=== PATIENT | male | born 1975 | race Two or more races ===

== ENCOUNTER 2018-03-02 15:56 | Outpatient (CLI) | payer OTHER | END 2018-03-02 16:37 | disposition home or self-care (01) | LOC: RAD 501 15:56 | DX: M79.651 Pain in right thigh (principal) ==

== ENCOUNTER 2018-03-16 08:50 | Day surgery (SDC) | payer OTHER | END 2018-03-16 16:15 | disposition home or self-care (01) | LOC: CIR.AMB 08:50 | DX: S76.311D Strain of muscle, fascia and tendon of the posterior muscle group at thigh level, right thigh, subsequent encounter (principal) ==

== ENCOUNTER 2018-10-13 04:21 | Emergency (ER) | payer OTHER ==
[~2018-10-13] VITALS: Ht 172.7 cm; Wt 72.6 kg
[2018-10-13] MEDS ORDERED: MUCINEX DM ER1 EAC1 PO (07:24)
[2018-10-13] MEDS ORDERED: TESSALON PERLE100 M1 PO (07:24)
[2018-10-13] MEDS ORDERED: FLONASE ALLERG9.9 ML NASAL (07:24)
[2018-10-13] MEDS ORDERED: KETO10TA2 PO (07:24)
== END 2018-10-13 08:16 | disposition home or self-care (01) ==
LOC: ER 04:21
DX: J06.9 Acute upper respiratory infection, unspecified (principal)

== ENCOUNTER 2020-05-18 16:26 | Outpatient (CLI) | payer OTHER ==
[~2020-05-18 16:26] MED LIST: FLONASE ALLERG9.9 ML NASAL; KETO10TA2 PO; MUCINEX DM ER1 EAC1 PO; TESSALON PERLE100 M1 PO
== END 2020-05-18 16:35 | disposition home or self-care (01) ==
LOC: RAD 16:26
PROVIDERS: ATTEND Orthopaedic Surgery
DX: M25.521 Pain in right elbow (principal)

== ENCOUNTER → 2021-04-25 08:04 | Outpatient (CLI) | payer OTHER | END | disposition home or self-care (01) | LOC: LAB 08:04 | PROVIDERS: ATTEND Orthopaedic Surgery | DX: D64.9 Anemia, unspecified (principal); E88.9 Metabolic disorder, unspecified; D68.8 Other specified coagulation defects; N39.0 Urinary tract infection, site not specified; A49.02 Methicillin resistant Staphylococcus aureus infection, unspecified site ==

== ENCOUNTER 2021-05-04 06:13 | Day surgery (SDC) | payer OTHER | END 2021-05-04 11:30 | disposition home or self-care (01) | LOC: CIR.AMB 06:13 | PROVIDERS: ATTEND Orthopaedic Surgery | DX: M77.11 Lateral epicondylitis, right elbow (principal); M65.821 Other synovitis and tenosynovitis, right upper arm ==

== ENCOUNTER 2023-02-10 03:38 | Emergency (ER) | payer OTHER ==
[~2023-02-10] VITALS: Ht 167.6 cm; Wt 68.0 kg
[2023-02-10] MEDS ORDERED: KETO10TA2 PO (05:52)
[2023-02-10] MEDS ORDERED: NORFLEX100MG PO (05:52)
== END 2023-02-10 05:57 ==
LOC: ER 03:38
DX: M54.59 Other low back pain (principal)

== ENCOUNTER 2023-02-14 10:29 | Outpatient (CLI) | payer OTHER ==
[~2023-02-14 10:29] MED LIST changes: +NORFLEX100MG PO
== END 2023-02-14 14:26 | disposition home or self-care (01) ==
LOC: MRI 10:29
PROVIDERS: ATTEND Physical Medicine & Rehabilitation
DX: M54.50 Low back pain, unspecified (principal)
CPT/HCPCS: 72148

== ENCOUNTER 2023-12-25 08:29 | Outpatient (CLI) | payer OTHER | END 2023-12-25 08:39 | disposition home or self-care (01) | LOC: RAD 08:29 | PROVIDERS: ATTEND Orthopaedic Surgery | DX: M25.512 Pain in left shoulder (principal) ==

== ENCOUNTER 2024-05-05 08:33 | Outpatient (CLI) | payer OTHER | END 2024-05-05 08:44 | disposition home or self-care (01) | LOC: SONOGRAMA 08:33 | PROVIDERS: ATTEND Urology | DX: N40.0 Benign prostatic hyperplasia without lower urinary tract symptoms (principal); N28.1 Cyst of kidney, acquired ==